=== PATIENT | female | born 1965 | race Caucasian/White ===

== ENCOUNTER 2017-05-22 07:09 | Day surgery (SDC) | payer OTHER ==
[~2017-05-22 07:09] MED LIST: Buffered Lidocaine 0.9% SYRIN* 5 ML/SYR SYRINGE INTRADERM ONE; Famotidine IV* 10 MG/ML 2 ML (20 mg) IV ONE
[2017-05-22] MEDS ORDERED: ceFAZolin 2 GM PREMIX (*) 2 GM/50 ML BAG IVPB ONE (07:24)
[2017-05-22] MEDS ORDERED: Famotidine IV* 10 MG/ML 2 ML (20 mg) ONE (07:24)
[2017-05-22] MEDS ORDERED: Midazolam* 1 MG/ML 5 ML VIAL (5 MG) ONE (09:06)
[2017-05-22] MEDS ORDERED: fentaNYL* 50 MCG/ML 2 ML VIAL (100 MCG VIAL) ONE (09:06)
[2017-05-22] MEDS ORDERED: Bupivacaine 0.25% SDV* 30 ML ONE ×2 (09:32→10:14)
[2017-05-22] MEDS ORDERED: Lidocaine 1% MPF wEPI 200,000* 30 ML SDV ONE (09:36)
[2017-05-22] MEDS ORDERED: DiMENhydriNATE IV* 50 MG/ML VIAL ONE (09:48)
[2017-05-22] MEDS ORDERED: Ondansetron INJ* 2 MG/ML VIAL ONE (09:48)
[2017-05-22] MEDS ORDERED: Propofol* 10 MG/ML 20 ML BTL IV PUSH ONE (09:48)
[2017-05-22] MEDS ORDERED: Lidocaine 2% PF * 5 ML VIAL ONE (09:48)
[2017-05-22] MEDS ORDERED: Dexamethasone IV* 4 MG/ML 1 ML (4 MG) ONE (09:48)
[2017-05-22] MEDS ORDERED: Ketorolac INJ* 30 MG/ML 1 ML VIAL ONE (09:48)
[2017-05-22] MEDS ORDERED: DiMENhydriNATE IV* 50 MG/ML VIAL IV PUSH PRN (10:12)
[2017-05-22] MEDS ORDERED: HYDROmorphone INJ* 1 MG/ML CARPUJECT SYRINGE IV PRN (10:12)
[2017-05-22] MEDS ORDERED: oxyCODONE/Acetamin 5/325 MG* TAB PO PRN (10:12)
[2017-05-22] MEDS ORDERED: methylPREDNISolone ACETATE 80* 80 MG/ML 1 ML VIAL ONE (10:13)
[2017-05-22 11:35] VITALS: BP 141/83
--- NOTE | 2017-05-23 05:15 | OP ---
DATE OF OPERATION: 05/22/17 - [facility] DATE OF : 61 ATTENDING SURGEON: Bandar Sharma MD SOLAR PROCESS ENGINEER: KEYONA Galloway. Double Surface Operator was needed for the entirety of the case to help with positioning, retraction, and utilized throughout all portions of the case. ANESTHESIOLOGIST: Dr. Banks. ANESTHESIA: General. PRE-OP DIAGNOSIS: Right knee meniscus tear with mild osteoarthritis. POST-OP DIAGNOSIS: Osteoarthritis with medial and lateral mild meniscus tears as well as plica. OPERATIVE PROCEDURE: Right knee arthroscopy with partial medial and lateral meniscectomy, plica excision, chondroplasty of the medial femoral condyle. COMPLICATIONS: None. ESTIMATED BLOOD LOSS: Minimal. INDICATIONS: Candace Garcia is a 51-year-old female who has had right knee pain after an injury. She has persistent mechanically based symptoms. She has failed conservative management. She reinjured her knee and elected to proceed with surgical treatment. Her surgery was delaying. The risks and benefits of surgery versus nonoperative treatment were discussed at length, included but not limited to bleeding, infection, damage to nerves, vessels, surrounding structures, wound nonhealing, persistent pain, need for surgery, scarring, stiffness, incomplete relief of symptoms, and risks of anesthesia. DESCRIPTION OF PROCEDURE: The patient was greeted in the preoperative area by the attending surgeon. Correct extremity was marked and consent was confirmed. The patient was brought back to the operating suite where she was placed in a supine position on the operating room table. She then underwent general anesthesia with LMA intubation after which an unsterile tourniquet was placed high in the proximal thigh. The lateral post was positioned. The right knee was then prepped and draped in the usual sterile fashion beginning with chlorhexidine soap, scrub, and alcohol wipe, and final prep with ChloraPrep. After appropriately surgical pause indicating site, side, procedure, and administration of antibiotics, the anterolateral portal was made sharply with an 11 blade. Scope was introduced into the joint. The joint was examined. There was abundant synovitis anteriorly. The medial portal was made in an outside end fashion. The shaver was used to debride back the fat pad as well as the medial plica. The electrocautery device was used to help stabilize bleeding. The patello-femoral joint was examined and had grade 1 changes. The medial and lateral gutters were intact. The medial compart-ment was examined, there was grade 2 osteoarthritis with mild unstable flaps on the tibial surface. The shaver was used to debride this back. The medial meniscus was probed and the most part was not torn posteriorly. There was mild fraying on the medial aspect which was debrided back using shaver. The ACL and PCL were intact. The knee was placed in a figure- of-four position and the lateral compartment was examined. The lateral femoral condyle had grade 0 to 1 changes. The plateau had grade 1 and 2 changes, small area of chondral changes, this was debrided back. The lateral meniscus, there was mild amount of fraying about the body of the meniscus but the root was otherwise intact, this was carefully probed. The shaver was used to debride back the unstable flaps of the meniscus as well as complete the chondroplasty in the lateral plateau. The knee was placed in extension and the patellofemoral joint was examined. There was a mild amount of osteoarthritis that was present there, but mostly the plica. The plica was taken, debrided back using the shaver and electrocautery device. Final images were obtained. The knee was thoroughly lavaged and the portals were irrigated. The portals were closed with 3-0 nylon. Knee was intra- articularly injected with 0.25% Marcaine plain and 80 mg of Depo-Medrol. She was awoken from anesthesia and transferred to PACU in stable condition. POSTOPERATIVE PLAN: She will be weightbearing as tolerated, crutches for the first 3 to 5 days. She will be allowed to work on range of motion. She will be discharged on pain medication. DVT prophylaxis was considered, but deferred due to no previous personal or family history. I will see the patient back in 10 to 14 days. [id number]/[facility] #: [id number] TANVIR
== END 2017-05-22 11:48 | disposition home or self-care (01) ==
LOC: OREAST 07:09
PROVIDERS: ATTEND Orthopaedic Surgery
DX: M23.321 Other meniscus derangements, posterior horn of medial meniscus, right knee (principal); M17.11 Unilateral primary osteoarthritis, right knee; I10 Essential (primary) hypertension
CPT/HCPCS: J0690; J1040; J1100; J1240; J1885; J2001; J2250; J2405; J2704; J3010

== ENCOUNTER 2018-12-03 18:48 | Emergency (ER) | payer OTHER ==
[2018-12-03 20:16] VITALS: BP 130/80
--- NOTE | 2018-12-03 20:21 | UC ---
Abdominal Pain Female HPI - HPI Summary HPI Summary: Per nursing note: Pt states starting last with cloudy urine. Today urinary frequency, burning, chills, and left lower back pain. - History of Current Complaint Chief Complaint: UCGU Stated Complaint: POSSBILE UTI Time Seen by Provider: 12/03/18 20:21 Pain Intensity: 8 Allergies/Adverse Reactions: Allergies Allergy/AdvReac Type Severity Reaction Status Date / Time No Known Allergies Allergy Verified 12/03/18 20:17 Home Medications: Home Medications Metformin HCl [Metformin ER Osmotic] 1,000 mg PO BID 12/03/18 [History Confirmed 12/03/18] glipiZIDE [Glipizide] 5 mg PO DAILY 12/03/18 [History Confirmed 12/03/18] PMH/Surg Hx/FS Hx/Imm Hx - Surgical History Surgical History: Yes Surgery Procedure, Year, and Place: LT SHOULDER RTC REPAIR 2011 approx. BILATERAL BREAST SURGERY- LUMPECTOMY - Social History Alcohol Use: Occasionally Substance Use Type: Marijuana Smoking Status (MU): Never Smoked Tobacco Physical Exam Vital Signs: Initial Vital Signs Temp 97.7 F 12/03/18 20:12 Pulse 85 12/03/18 20:12 Resp 16 12/03/18 20:12 BP 130/80 12/03/18 20:12 Pulse Ox 99 12/03/18 20:12 Discharge - Discharge Plan Referrals: Jennie Liao MD [Primary Care Provider] -
[2018-12-03] MEDS ORDERED: Phenazopyridine TAB* 100 MG PO ONE (20:27)
[2018-12-03] MEDS ORDERED: Nitrofurantoin Macrocrystals* 50 MG CAP PO ONE (20:27)
--- NOTE | 2018-12-05 14:42 | UC ---
- Progress Note Progress Note: prelim culture growing Klebsiella awaiting sensitivities Course/Dx - Diagnoses Provider Diagnoses: UTI (urinary tract infection) Discharge - Sign-Out/Discharge Documenting (check all that apply): Post-Discharge Follow Up All imaging exams completed and their final reports reviewed: No Studies - Discharge Plan Condition: Good Disposition: HOME Prescriptions: Nitrofurantoin Monohyd/M-Cryst [Macrobid 100 mg Capsule] 100 mg PO BID #10 cap Phenazopyridine TAB* [Pyridium 100 mg TAB*] 100 mg PO BID PRN #7 tab PRN Reason: urinary frequency Patient Education Materials: Nitrofurantoin Combination (By mouth), Urinary Tract Infection in Women (DC) Forms: *Work Release Referrals: Jennie Liao MD [Primary Care Provider] - Additional Instructions: - ANtibitoics as directed x 5 days - Increase fluid intake - Pyridium twice daily for urinary burning, frequency - Tylenol as needed for pain, irritation - FOllow up with primary physician within 1-2 days if no improvement - Go to ER with back pain, spasms, fever > 102 - Billing Disposition and Condition Condition: GOOD Disposition: Home
== END 2018-12-03 20:39 | disposition home or self-care (01) ==
LOC: UCCORT 18:48
DX: N39.0 Urinary tract infection, site not specified (principal)
CPT/HCPCS: 81003; 87077; 87086; 87186; 99212; A9270-GY; G0463